=== PATIENT | female | born 1940 | race Caucasian/White ===

== ENCOUNTER → 2023-12-10 08:50 | Outpatient (BNVA) | payer MEDICARE, SELFPAY | PROVIDERS: PCP Family Medicine; Referring Provider Family Medicine; Visit Provider Psychiatry & Neurology Neurology | DX: G40.919 Epilepsy, unspecified, intractable, without status epilepticus (principal) | CPT/HCPCS: 99203 ==

== ENCOUNTER 2024-01-24 15:25 | Observation (INO) | payer MEDICARE, SELFPAY ==
[2024-01-24] VITALS (17 sets, daily range): BP systolic 102–152; BP diastolic 44–77; PULSE 61–94; RESP 13–30; TEMP 36.4–36.6; O2SAT 92–99; BMI 27.8; BMI 28.5
--- NOTE | 2024-01-24 15:45 | ECG_ITS ---
[facility] Test Date: 2024-01-24 Pat Name: Gia Aquino Department: Room: Gender: Female [employer]: : 1940 Requested By: Rhys Wade Order Number: [id number] Reading MD: JAN GREENWOOD Measurements Intervals [place] Rate: 81 P: 18 PA: 205 QRS: -13 QRSD: 110 T: 49 QT: 383 QTc: 447 Interpretive Statements SINUS RHYTHM LOW QRS VOLTAGE IN PRECORDIAL LEADS [QRS DEFLECTION < 1.0 mV IN CHEST LEADS] PATTERN CONSISTENT WITH PULMONARY DISEASE No previous ECG available for comparison Electronically Signed On 01-25-2024 00:07:36 CDT by JAN GREENWOOD [email or web address]
--- NOTE | 2024-01-24 16:08 | ED_ITS ---
HPI - Seizure 2 General: Chief Complaint: Seizure Stated Complaint: subclinical seizures (sent by Dr Grier) Time Seen by Provider: 01/24/24 15:55 Source: patient Mode of arrival: ambulatory History of Present Illness: HPI Narrative: This patient was referred to the emergency department by neurologist Dr. Grier. She has a longstanding history of a seizure disorder since young adulthood. Apparently has been controlled by phenobarbital up until a point in time when her phenobarbital was discontinued and she was started on Keppra as well as a second anticonvulsant. Subsequently her seizures been less well- controlled and today she was getting an EEG and was noted to have several seizures during that EEG with EEG consistent and supportive of a left-sided focus of her seizures. She was referred to the emergency department for loading of IV phenobarbital and admission for further care and control of her seizures. The patient denies any active complaints at this time. She confirms that she has had seizures since age 26. She also has a history of coronary disease and has had previous stents placed but denies any current cardiovascular symptoms palpitations near syncope etc. She states she has both partial as well as generalized seizures and that she sometimes is aware of her seizures coming on and many times not. MD complaint: seizure Associated symptoms: Deny chest pain, chills, fever(s) or syncope Related Data Home Medications Medication Instructions Recorded Confirmed levetiracetam 500 mg tablet mg PO 12/10/23 01/24/24 levothyroxine 25 mcg tablet mcg PO 12/10/23 01/24/24 zonisamide 100 mg capsule mg PO 12/10/23 01/24/24 Allergies Allergy/AdvReac Type Severity Reaction Status Date / Time codeine Allergy ADR/ALGY-Fl Verified 01/24/24 15:35 ushing Review of Systems 2 Const: Denies: fever(s) or chills Eyes: Denies: change in vision ENMT: Denies: throat pain, odynophagia, nasal discharge or nasal congestion Card: Denies: chest pain, palpitations, syncope or pre-syncope Resp: Denies: dyspnea, productive cough or non-productive cough GI: Denies: abdominal pain, nausea, vomiting or diarrhea : Denies: flank pain, difficulty voiding, dysuria or urinary frequency Musc: Denies: neck pain, back pain, extremity pain or extremity swelling Skin/Breast: Denies: rash, pruritus or erythema Neuro: Reports: seizure-like activity; Denies: headache(s), numbness in extremities or weakness in extremities Psych: Denies: anxiety, depression or mood swings PFSH ED 2 PFSH: Medical History (Updated 01/24/24 @ 17:36 by Roc Dejesus MD) CAD (coronary artery disease) Hypothyroidism Complex partial epilepsy with generalization Surgical History (Updated 01/24/24 @ 17:36 by Roc Dejesus MD) H/O heart artery stent Family History (Updated 01/24/24 @ 17:37 by Roc Dejesus MD) Other CAD (coronary artery disease) Social History (Updated 01/24/24 @ 17:38 by Roc Dejesus MD) Smoking and tobacco/nicotine status: never used tobacco/nicotine Alcohol intake: never Substance/Drug Use: never Household members: none Housing: House Marital status: / Physical Exam 2 Narrative: EXAM NARRATIVE: The patient is alert in no acute distress answers questions in a goal-directed fashion. Const: COMMON NORMALS: no acute distress, average body habitus, patient oriented x3 and healthy appearing GENERAL APPEARANCE: cooperative and comfortable HENMT: COMMON NORMALS: normocephalic, Normal nasal mucous membranes and turbinates present, moist oral mucous membranes and oropharynx normal HEAD & SCALP: normocephalic NOSE: Normal nasal mucous membranes and turbinates present Eye: COMMON NORMALS: Equal, round and reactive pupils present, EOMs intact bilaterally and conjunctivae normal CONJUNCTIVA: Yes conjunctivae normal P UPIL: Yes Equal, round and reactive pupils present Neck/C-Spine: COMMON NORMALS: full ROM, no lymphadenopathy and Thyroid normal THYROID: Thyroid normal Resp: COMMON NORMALS: normal respiratory effort, No retractions, No use of accessory muscles and clear to auscultation bilaterally EFFORT & INSPECTION: Yes able to speak in complete sentences AUSCULTATION: clear to auscultation bilaterally Cardio: COMMON NORMALS: regular rate, regular rhythm, No murmurs present (Cardio) and Peripheral pulses 2+ throughout RATE: regular rate RHYTHM: r egular rhythm PERIPHERAL PULSES: Peripheral pulses 2+ throughout GI: COMMON NORMALS: Normal to inspection, nondistended, normoactive bowel sounds present and Soft to palpation PALPATION: Yes Soft to palpation : COMMON NORMALS: Yes no CVA tenderness BLADDER/KIDNEY EXAM: Yes no CVA tenderness Back/Pelvis: COMMON NORMALS: no CVA tenderness, thoracic and lumbar spine normal to inspection, no thoracic nor lumbar tenderness and thoraco-lumbar ROM normal Extremity: COMMON NORMALS: normal to inspection, full ROM and capillary refill normal Neuro: COMMON NORMALS: patient oriented x3, moves all extremities, no focal motor deficits and no sensory deficits noted CRANIAL NERVES: Yes CN normal except as noted Psych: COMMON NORMALS: mental status grossly normal Skin: COMMON NORMALS: no rashes or lesions noted and turgor normal GENERAL SKIN EXAM: no rashes or lesions noted and turgor normal Course 2 Consultations: Consultation #1: Discussed with Dr. Longoria hospitalist and reaffirmed that he had discussion with Dr. Grier regarding the planned admission and continuation of phenobarbital and other antiepileptic medications to include for Keppra and zonisamide. Time: 16:36 Vital Signs: Vital signs: Vital Signs Temperature 97.9 F 01/24/24 15:25 Pulse Rate 86 01/24/24 17:32 Respiratory Rate 16 01/24/24 17:32 Blood Pressure 137/61 01/24/24 17:32 Pulse Oximetry 99 01/24/24 17:32 Oxygen Delivery Me thod Room Air 01/24/24 17:32 MDM - Seizure MDM Narrative Medical decision making narrative: This patient presents to the emergency department by referral as noted in the HPI. The patient has a longstanding history of seizure disorder has become less well-controlled due to medication changes that have occurred over the years. She was referred for loading of phenobarbital and believe plan for admission for continued monitoring while medication changes are being made. Clinical examination reveals her to be stable at this time without any focal findings. Extensive workup not engaged in the emergency department due to the nature of this presentation and planned admission. Initiated loading dose of phenobarbital 300 mg did obtain basic laboratories for baseline, EKG to ensure normal rhythm and as well as by request from hospitalist team CT imaging of the head. Lab Data 01/24/24 16:45 01/24/24 16:45 Labs: Radiology Impressions Head CT 01/24/24 16:39 IMPRESSION: 1. Atrophic or involutional change for age and bilateral mild chronic small-vessel disease change suggested. 2. No acute intracranial abnormality. Laboratory Results WBC 7.77 10^3/uL (3.29-11.43) 01/24/24 16:45 RBC 4.02 10^6/uL (3.85-5.65) 01/24/24 16:45 Hgb 13.20 g/dL (11.27-16.99) 01/24/24 16:45 Hct 40.3 % (36-47) 01/24/24 16:45 MCV 100.2 fl (85-98) H 01/24/24 16:45 MCH 32.8 pg (27-33) 01/24/24 16:45 MCHC 32.8 g/dL (30-55) 01/24/24 16:45 RDW 11.9 % (12.1-15.1) L 01/24/24 16:45 Plt Count 277 10^3/cmm (157-399) 01/24/24 16:45 MPV 10.3 fL (7.4-10.4) 01/24/24 16:45 Neut % (Auto) 80.6 % 01/24/24 16:45 Lymph % (Auto) 11.2 % 01/24/24 16:45 [place] % (Auto) 6.2 % 01/24/24 16:45 Eos % (Auto) 1.2 % 01/24/24 16:45 Baso % (Auto) 0.5 % 01/24/24 16:45 Neut # (Auto) 6.27 10^3/uL (1.8-7.7) 01/24/24 16:45 Lymph # (Auto) 0.9 10^3/uL (0.8-4.8) 01/24/24 16:45 [place] # (Auto) 0.5 10^3/uL (0.2-0.9) 01/24/24 16:45 Eos # (Auto) 0.1 10^3/uL (0.0-0.8) 01/24/24 16:45 Baso # (Auto) 0.0 10^3/uL (0.0-0.1) 01/24/24 16:45 Nucleated RBC % (auto) 0 % 01/24/24 16:45 Nucleated RBCs # 0.0 /100WBC 01/24/24 16:45 Sodium 137 mmol/L (136-145) 01/24/24 16:45 Potassium 3.8 mmol/L (3.5-5.1) 01/24/24 16:45 Chloride 102 mmol/L (98-107) 01/24/24 16:45 Carbon Dioxide 24 mmol/L (22-29) 01/24/24 16:45 Anion Gap 14.8 (5-19) 01/24/24 16:45 BUN 19 mg/dL (8-23) 01/24/24 16:45 Creatinine 0.6 mg/dL (0.5-0.9) 01/24/24 16:45 GFR Calculation Not Reportable 01/24/24 16:45 Glucose 115 mg/dL (65-115) 01/24/24 16:45 Calculated Osmolality 287 mOsm/kg (285-295) 01/24/24 16:45 Calcium 9.5 mg/dL (8.5-10.5) 01/24/24 16:45 Magnesium 2.2 mg/dL (1.7-2.3) 01/24/24 16:45 Total Bilirubin 0.3 mg/dL (0.15-1.2) 01/24/24 16:45 AST 17 U/L (0-32) 01/24/24 16:45 ALT 11 U/L (0-33) 01/24/24 16:45 Alkaline Phosphatase 122 U/L (35-105) H 01/24/24 16:45 Total Protein 7.1 g/dL (6.6-8.7) 01/24/24 16:45 Albumin 4.3 g/dL (3.5-5.2) 01/24/24 16:45 Globulin 2.8 g/dL (1.3-4.6) 01/24/24 16:45 Procalcitonin 0.04 ng/mL (0-0.5) 01/24/24 16:45 TSH 1.91 uIU/mL (0.27-4.20) 01/24/24 16:45 All radiology interpretation(s) finalized by discharge EKG Data EKG 1: Attestation: I personally reviewed and interpreted this EKG as follows: Interpretation: Resting EKG reveals a ventricular rate of 81 bpm. Normal TN interval, QRS duration, corrected QT interval. Normal axis. No acute ST-T wave changes noted. Discharge Plan Discharge Patient Disposition: Placed in Observation Admit Provider: Roc Dejesus Clinical Impression: Breakthrough seizure Coding Level of Care Code ED Records Management Technician for Jomar Lucia
--- NOTE | 2024-01-24 16:39 | CTR_ITS ---
PROCEDURE INFORMATION: Exam: CT Head Without Contrast Exam date and time: 01/24/2024 4:47 PM Age: 83 years old Clinical indication: Other: Seizure disorder; Additional info: Seizure disorder-breaththru seizures TECHNIQUE: Imaging protocol: Computed tomography of the head without contrast. Radiation optimization: All CT scans at this facility use at least one of these dose optimization techniques: automated exposure control; mA and/or kV adjustment per patient size (includes targeted exams where dose is matched to clinical indication); or iterative reconstruction. COMPARISON: No relevant prior studies available. RADIATION DOSE METRICS: Total DLP (mGy-cm): 969.11 FINDINGS: Brain: Atrophic or involutional change for age is seen. Mild chronic small-vessel disease change suggested bilaterally within the periventricular and subcortical deep white matter, including anterior basal ganglia bilaterally. No intracranial hemorrhage or hematoma is seen. No mass effect or shift of midline structures. No findings to indicate territorial or large vessel ischemic infarct. Cerebral ventricles: No significant ventriculomegaly. Paranasal sinuses: Visualized sinuses are unremarkable. No fluid levels. Mastoid air cells: Visualized mastoid air cells are well aerated. Bones: Bone windows of the skull show no fracture or acute osseous abnormality. Soft tissues: Unremarkable. CT/CT head wo con* [id number] IMPRESSION: 1. Atrophic or involutional change for age and bilateral mild chronic small-vessel disease change suggested. 2. No acute intracranial abnormality.
[2024-01-24 16:58] LABS: Basophils % 0.5 %; Eosinophils # 0.1 10^3/uL (0.0-0.8); Eosinophils % 1.2 %; Hematocrit 40.3 % (36-47); Lymphocytes # 0.9 10^3/uL (0.8-4.8); Lymphocytes % 11.2 %; Mean Corpuscular HGB Conc 32.8 g/dL (30-55); Mean Corpuscular Hemoglobin 32.8 pg (27-33); Mean Corpuscular Volume 100.2 fl (85-98); Mean Platelet Volume 10.3 fL (7.4-10.4); Monocytes # 0.5 10^3/uL (0.2-0.9); Monocytes % 6.2 %; Neutrophils # 6.27 10^3/uL (1.8-7.7); Neutrophils % 80.6 %; Nucleated Red Blood Cells % 0 %; Platelet Count 277 10^3/cmm (157-399); Red Blood Count 4.02 10^6/uL (3.85-5.65); Red Cell Distribution Width 11.9 % (12.1-15.1); White Blood Count 7.77 10^3/uL (3.29-11.43)
--- NOTE | 2024-01-24 17:17 | P.HP_ITS ---
Providers/Chief Complaint 2 Primary Care Provider: Dewayne Kramer NP Chief Complaint: subclinical seizures (sent by Dr Grier) History of Present Illness Gia Aquino is a 83 year old female with past medical history of complex partial seizure since the age of 26 with multiple breakthrough seizure 2-3 times for last few months almost on a weekly basis. As per the patient and daughter she was previously on zonogram and phenobarbital but was recently changed by her primary care provider and phenobarbital was discontinued and switched to Keppra which had made her breakthrough seizures worse. Today patient was at neurology office getting an EEG. As per the patient while waiting in the waiting because she did have a petit mall seizure. During the EEG she was found to have epileptic changes starting from the left focus hence she was transferred to the ER for loading of phenobarbital by Dr. Grier and direct admit was requested. Examination patient laying comfortably in bed, awake and alert. Denies any nausea, ting, headache, dizziness. Review of Systems 2 General: Reports: 10 or more systems reviewed and unremarkable except in HPI and below Const: Denies: fever(s), chills, body aches, change in appetite, change in weight, malaise, night sweats, diaphoresis, change in sleep pattern, daytime sleepiness or snoring Eyes: Denies: change in vision, blurry vision, photophobia, eye discomfort or eye discharge ENMT: Denies: throat pain, enlarged tonsils, hoarseness, mouth pain, oral sores, dry mouth, tinnitus, nasal congestion or post nasal drip Card: Denies: chest pain, palpitations, irregular heart rhythm, edema, swelling of feet/ankles, lightheadedness, syncope, pre-syncope, dyspnea on exertion, orthopnea, leg pain with exertion or acrocyanosis Resp: Denies: dyspnea, productive cough, non-productive cough, wheezing, stridor, pain on inspiration, change in phlegm color, hemoptysis or chest congestion GI: Denies: abdominal pain, nausea, vomiting, hematemesis, coffee ground emesis, dysphagia, heartburn, diarrhea, constipation, bloating, GI cramping, change in bowel habits, pain on defecation, hematochezia or melena : Denies: flank pain, dysuria, urinary frequency, urinary urgency, urinary hesitancy, nocturia or hematuria Musc: Denies: neck pain, back pain, extremity pain, joint pain, joint swelling, joint redness, joint stiffness or limited range of motion Neuro: Denies: headache(s), numbness in extremities, weakness in extremities, sensory changes, lack of coordination, difficulty walking, frequent falls, dizziness, vertigo, confusion, Slurred speech present, difficulty communicating thoughts or seizure-like activity Psych: Denies: anxiety, depression, mood swings, panic attacks, hopelessness or irritability Endo: Denies: polyuria, polydipsia, tired all the time, cold intolerance, excessive sweating, flushing or heat intolerance Scar/Lymph: Denies: easy bruising or easy bleeding All/Imm: Denies: tongue swelling, facial swelling or acute wheezing Medications/Allergies Home Medications Medication Instructions Recorded Confirmed Last Taken Type levetiracetam 500 mg tablet 750 mg (1.5 x 500 mg) PO BID 30 01/25/24 01/24/24 Unknown Rx days #90 tabs levothyroxine 25 mcg tablet 25 mcg PO QAM #10 tabs 01/25/24 01/24/24 Unknown Rx phenobarbital 100 mg tablet 100 mg PO QPM #30 tabs 01/25/24 Unknown Rx zonisamide 100 mg capsule 300 mg (3 x 100 mg) PO QPM 30 days 01/25/24 01/24/24 Unknown Rx #90 caps Allergies Allergy/AdvReac Type Severity Reaction Status Date / Time codeine Allergy ADR/ALGY-Fl Verified 01/24/24 15:35 ushing PFSH Acute 2 PFSH: Medical History (Updated 01/24/24 @ 17:36 by Roc Dejesus MD) CAD (coronary artery disease) Hypothyroidism Complex partial epilepsy with generalization Surgical History (Updated 01/24/24 @ 17:36 by Roc Dejesus MD) H/O heart artery stent Family History (Updated 01/24/24 @ 17:37 by Roc Dejesus MD) Other CAD (coronary artery disease) Social History (Updated 01/24/24 @ 17:38 by Roc Dejesus MD) Smoking and tobacco/nicotine status: never used tobacco/nicotine Alcohol intake: never Substance/Drug Use: never Household members: none Housing: House Marital status: / Vitals/I&O/Wt Last Vital Signs Temp 97.9 F 01/24/24 15:25 Pulse 82 01/24/24 15:25 Resp 16 01/24/24 15:25 BP 132/72 01/24/24 15:25 Pulse Ox 96 01/24/24 15:25 O2 Del Method Room Air 01/24/24 15:25 Weight last 48 hrs Weight 68.946 kg Physical Exam 2 Narrative: General: No acute distress, AO x3 HEENT: PERRLA, pupils bilaterally equal and reactive Chest: Normal vesicular breath sounds, no added sounds, equal good air entry bilaterally CVS: S1-S2 regular, no murmurs, no tachycardia, no gallops, no rubs Abdomen: Soft, nontender, no organomegaly, bowel sounds present Neuro: No focal deficits, no facial deformity, AO x3, power 5/5 in all limbs Data 01/25/24 03:52 01/25/24 03:52 A&P Assessment and plan (1) Complex partial epilepsy with generalization: (2) Breakthrough seizure: With breakthrough seizures 3-4 times every week. Seizures most likely complex partial with generalization. History of absent seizures. Seen on EEG today. Discussed in detail with Dr. Grier from neurology. Check CT head, urine drug screen, electrolytes, TSH, vitamin B12, folate level. Plan for loading with phenobarbital 300 mg stat followed by 100 mg at night. IV Keppra 750 mg twice daily Oral zonisamide 300 mg twice daily. Plan to check Keppra, phenobarbital and zonisamide levels in AM. Seizure precautions. If patient does have a seizure plan for IV Ativan 1 mg every 4 hours as needed. (3) Hypothyroidism: Check TSH. Continue home dose of levothyroxine. (4) CAD (coronary artery disease): Check A1c, lipid panel. No chest pain. Continue with home dose of baby aspirin. Plan Full code Patient's daughter Mei will be the DPOA Cardiac diet Protonix OPD prophylaxis Heparin 5000 Q12 hourly for DVT prophylaxis Attestations 2 Medical Necessity Statement*: Admitted in ICU under observation for management of breakthrough seizures in a patient with history of complex partial seizure with generalization. Diagnoses Complex partial epilepsy with generalization G40.209 Breakthrough seizure G40.919 Hypothyroidism E03.9 CAD (coronary artery disease) I25.10
[2024-01-24 17:20] LABS: Alanine Aminotransferase 11 U/L (0-33); Albumin Level 4.3 g/dL (3.5-5.2); Alkaline Phosphatase 122 U/L (35-105); Anion Gap 14.8 (5-19); Aspartate Amino Transferase 17 U/L (0-32); Blood Urea Nitrogen 19 mg/dL (8-23); Calcium 9.5 mg/dL (8.5-10.5); Carbon Dioxide 24 mmol/L (22-29); Chloride 102 mmol/L (98-107); Creatinine Clr Calc Pharmacy 50.1834; Globulin 2.8 g/dL (1.3-4.6); Glucose 115 mg/dL (65-115); Magnesium 2.2 mg/dL (1.7-2.3); Osmolality Calculated 287 mOsm/kg (285-295); Potassium 3.8 mmol/L (3.5-5.1); Sodium 137 mmol/L (136-145); Thyroid Stimulating Hormone 1.91 uIU/mL (0.27-4.20); Total Bilirubin 0.3 mg/dL (0.15-1.2); Total Protein 7.1 g/dL (6.6-8.7)
[2024-01-24 17:41] LABS: Procalcitonin 0.04 ng/mL (0-0.5)
--- NOTE | 2024-01-24 18:16 | PC.NURSE ---
Assumed care of patient from Cydney WELLINGTON, No documentation has been done on pt. Cherrie informed me that she has been discussing the Phenobarbitol order with pharmacy as she was not comfortable giving it IVP and Dr Wade ordered it as piggyback over an hr. Spoke with Adriana in pharmacy and she stated that IVP over 5-15mins is the way to give this med. Unable to pull from pyxis.
[2024-01-24 18:58] LABS: Iron 58 ug/dL (37-145); Percent Saturation 20.9 % (20-50); Total Iron Binding Capacity 277 mcg/dl; Unsaturated Iron Binding 219 ug/dL (112-347)
[2024-01-24] MEDS: levETIRAcetam 750 MG in sodium chloride 0.9% (100 ml) 100 ML 430 MG IV (19:06)
[2024-01-24] MEDS: PHENobarbital 130 mg/mL SDV 1 mL 300 MG IVP (19:06)
[2024-01-24] MEDS: zonisamide 100 MG Capsule 300 MG PO (19:06)
[2024-01-24 19:14] LABS: Vitamin B12 1424 pg/mL (232-1245)
[2024-01-24] MEDS: sodium chloride 0.9% 1,000 ML 50 ML IV (19:43)
[2024-01-24] MEDS: pantoprazole 40 mg SDV IVP (19:44)
[2024-01-24] MEDS: PHENobarbital 130 mg/mL SDV 1 mL 100 MG IVP (21:48)
[2024-01-24] MEDS: heparin 5,000 unit/mL INJ 1 mL 5000 UNIT SUBCUT (21:49)
[2024-01-25] VITALS (14 sets, daily range): BP systolic 108–147; BP diastolic 44–82; PULSE 51–84; RESP 12–20; TEMP 36.3; O2SAT 93–98
[2024-01-25 00:14] LABS: Bilirubin Urine Negative (Negative); Blood Urine Negative (Negative); Glucose Urine UA Negative (Normal); Ketones Urine Negative (Negative); Leukocyte Esterase Urine 1+ (Negative); Nitrate Urine Negative (Negative); Protein Urine Negative (Negative); Specific Gravity, Urine 1.016 (1.005-1.030); Urine Appearance Clear (CLEAR); Urine Color Yellow (Yellow); pH Urine 7.5 (5-7)
[2024-01-25 00:19] LABS: Add Urine Microscopic? YES; Bacteria Urine None Seen /hpf; Hyaline Casts Urine 0-4 /lpf; RBC Urine 0-2 /hpf (0-2); Squamous Epithelial Cell Urine 0-5 /hpf (0-5); WBC Urine 0-5 /hpf (0-5)
[2024-01-25 00:22] LABS: Amphetamines Screen Urine Negative (Negative); Barbiturates Screen Urine Positive (Negative); Benzodiazepines Screen Urine Negative (Negative); Cocaine Screen Urine Negative (Negative); Opiate Screen Urine Negative (Negative); PCP Screen Urine Negative (Negative); THC Screen Urine Negative (Negative)
[2024-01-25 04:27] LABS: Basophils % 0.7 %; Eosinophils # 0.2 10^3/uL (0.0-0.8); Eosinophils % 3.9 %; Hematocrit 36.1 % (36-47); Lymphocytes # 1.4 10^3/uL (0.8-4.8); Lymphocytes % 26.4 %; Mean Corpuscular HGB Conc 31.9 g/dL (30-55); Mean Corpuscular Hemoglobin 32.4 pg (27-33); Mean Corpuscular Volume 101.7 fl (85-98); Mean Platelet Volume 10.6 fL (7.4-10.4); Monocytes # 0.5 10^3/uL (0.2-0.9); Neutrophils # 3.19 10^3/uL (1.8-7.7); Neutrophils % 58.8 %; Nucleated Red Blood Cells % 0 %; Platelet Count 247 10^3/cmm (157-399); Red Blood Count 3.55 10^6/uL (3.85-5.65); Red Cell Distribution Width 11.9 % (12.1-15.1); White Blood Count 5.42 10^3/uL (3.29-11.43)
[2024-01-25 04:45] LABS: Alanine Aminotransferase 9 U/L (0-33); Albumin Level 3.7 g/dL (3.5-5.2); Alkaline Phosphatase 97 U/L (35-105); Anion Gap 11.6 (5-19); Aspartate Amino Transferase 14 U/L (0-32); Blood Urea Nitrogen 16 mg/dL (8-23); Calcium 8.7 mg/dL (8.5-10.5); Carbon Dioxide 23 mmol/L (22-29); Chloride 108 mmol/L (98-107); Creatinine Clr Calc Pharmacy 50.8469; Estmated Average Glucose 108; Globulin 2.1 g/dL (1.3-4.6); Glucose 92 mg/dL (65-115); Hemoglobin A1C 5.4 % (4.0-6.0); Magnesium 2.2 mg/dL (1.7-2.3); Osmolality Calculated 289 mOsm/kg (285-295); Phosphorus 3.3 mg/dL (2.5-4.5); Potassium 3.6 mmol/L (3.5-5.1); Sodium 139 mmol/L (136-145); Total Bilirubin 0.4 mg/dL (0.15-1.2); Total Protein 5.8 g/dL (6.6-8.7)
[2024-01-25 04:48] LABS: Chol HDL Ratio 3.37 mg/dL (0.0-4.40); Cholesterol 209 mg/dL (0-200); HDL Cholesterol 62 mg/dL (60-100); LDL Cholesterol Calculated 136 mg/dL (50-129); LDL HDL Ratio 2.19 RATIO (0.00-3.22); Triglycerides 55 mg/dL (0-150)
[2024-01-25 05:20] LABS: Folate Level > 20.0 ng/mL (4.8-37.3)
[2024-01-25] MEDS: levothyroxine 25 mcg Tablet PO (05:39)
[2024-01-25] MEDS: levETIRAcetam 750 MG in sodium chloride 0.9% (100 ml) 100 ML 430 MG IV (08:43)
[2024-01-25] MEDS: aspirin 81 mg EC Tablet PO (08:44)
[2024-01-25] MEDS: heparin 5,000 unit/mL INJ 1 mL 5000 UNIT SUBCUT (08:44)
[2024-01-25] MEDS: PHENobarbital 130 mg/mL SDV 1 mL 100 MG IVP (08:44)
[2024-01-25] MEDS: zonisamide 100 MG Capsule 300 MG PO (08:46)
--- NOTE | 2024-01-25 10:08 | PM.DCS ---
Discharge Providers Date of Admission: 01/24/24 17:21 Date of Discharge: January 25, 2024 Attending Provider at Admission: Roc Dejesus MD Attending Provider at Discharge: Roc Dejesus MD Primary Care Provider: Dewayne Kramer NP Diagnoses at Discharge Discharge Diagnosis (1) Complex partial epilepsy with generalization: Status: Acute (2) Breakthrough seizure: Status: Acute (3) Hypothyroidism: Status: Acute (4) CAD (coronary artery disease): Status: Acute Reason for Visit Reason for Visit: subclinical seizures (sent by Dr Grier) Hospital Course Hospital Course Gia Aquino is a 83 year old female with past medical history of complex partial seizure since the age of 26 with multiple breakthrough seizure 2-3 times for last few months almost on a weekly basis. As per the patient and daughter she was previously on zonogram and phenobarbital but was recently changed by her primary care provider and phenobarbital was discontinued and switched to Keppra which had made her breakthrough seizures worse. Today patient was at neurology office getting an EEG. As per the patient while waiting in the waiting because she did have a [place] seizure. During the EEG she was found to have epileptic changes starting from the left focus hence she was transferred to the ER for loading of phenobarbital by Dr. Grier and direct admit was requested. Patient was admitted to the ICU for further monitoring and changing of her antiseizure medications. During hospitalization she did not have any further episodes of seizures and tolerated the adjustment of medications well. She has been discharged hemodynamic stable condition after confirming with neurologist on her home dose of Keppra, zonisamide but starting phenobarb 100 mg oral every evening with advised to follow-up with neurology team as an outpatient within next 1 week. Physical Exam Narrative: General: No acute distress, AO x3 HEENT: PERRLA, pupils bilaterally equal and reactive Chest: Normal vesicular breath sounds, no added sounds, equal good air entry bilaterally CVS: S1-S2 regular, no murmurs, no tachycardia, no gallops, no rubs Abdomen: Soft, nontender, no organomegaly, bowel sounds present Neuro: No focal deficits, no facial deformity, AO x3, power 5/5 in all limbs Discharge Data Studies Completed and Pending Completed Studies During Hospitalization Category Date Time Status CT head wo con* [id number] Stat Cat Scan 01/24/24 16:39 Completed Pending at discharge Category Date Time Status KEPPRA [Levetiracetam Immunoassy] Routine Lab 01/25/24 03:52 Received Zonisamide (Zonegran) Routine Lab 01/25/24 03:52 Received Radiology Impressions Head CT 01/24/24 16:39 IMPRESSION: 1. Atrophic or involutional change for age and bilateral mild chronic small-vessel disease change suggested. 2. No acute intracranial abnormality. Laboratory Results WBC 5.42 10^3/uL (3.29-11.43) 01/25/24 03:52 RBC 3.55 10^6/uL (3.85-5.65) L 01/25/24 03:52 Hgb 11.50 g/dL (11.27-16.99) 01/25/24 03:52 Hct 36.1 % (36-47) 01/25/24 03:52 MCV 101.7 fl (85-98) H 01/25/24 03:52 MCH 32.4 pg (27-33) 01/25/24 03:52 MCHC 31.9 g/dL (30-55) 01/25/24 03:52 RDW 11.9 % (12.1-15.1) L 01/25/24 03:52 Plt Count 247 10^3/cmm (157-399) 01/25/24 03:52 MPV 10.6 fL (7.4-10.4) H 01/25/24 03:52 Neut % (Auto) 58.8 % 01/25/24 03:52 Lymph % (Auto) 26.4 % 01/25/24 03:52 [place] % (Auto) 10.0 % 01/25/24 03:52 Eos % (Auto) 3.9 % 01/25/24 03:52 Baso % (Auto) 0.7 % 01/25/24 03:52 Neut # (Auto) 3.19 10^3/uL (1.8-7.7) 01/25/24 03:52 Lymph # (Auto) 1.4 10^3/uL (0.8-4.8) 01/25/24 03:52 [place] # (Auto) 0.5 10^3/uL (0.2-0.9) 01/25/24 03:52 Eos # (Auto) 0.2 10^3/uL (0.0-0.8) 01/25/24 03:52 Baso # (Auto) 0.0 10^3/uL (0.0-0.1) 01/25/24 03:52 Nucleated RBC % (auto) 0 % 01/25/24 03:52 Nucleated RBCs # 0.0 /100WBC 01/25/24 03:52 Sodium 139 mmol/L (136-145) 01/25/24 03:52 Potassium 3.6 mmol/L (3.5-5.1) 01/25/24 03:52 Chloride 108 mmol/L (98-107) H 01/25/24 03:52 Carbon Dioxide 23 mmol/L (22-29) 01/25/24 03:52 Anion Gap 11.6 (5-19) 01/25/24 03:52 BUN 16 mg/dL (8-23) 01/25/24 03:52 Creatinine 0.5 mg/dL (0.5-0.9) 01/25/24 03:52 GFR Calculation Not Reportable 01/25/24 03:52 Glucose 92 mg/dL (65-115) 01/25/24 03:52 Estimat Average Glucose 108 01/25/24 03:52 Hemoglobin A1c 5.4 % (4.0-6.0) 01/25/24 03:52 Calculated Osmolality 289 mOsm/kg (285-295) 01/25/24 03:52 Calcium 8.7 mg/dL (8.5-10.5) 01/25/24 03:52 Phosphorus 3.3 mg/dL (2.5-4.5) 01/25/24 03:52 Magnesium 2.2 mg/dL (1.7-2.3) 01/25/24 03:52 Iron 58 ug/dL (37-145) 01/24/24 16:45 TIBC 277 mcg/dl 01/24/24 16:45 % Saturation 20.9 % (20-50) 01/24/24 16:45 Unsat Iron Binding 219 ug/dL (112-347) 01/24/24 16:45 Total Bilirubin 0.4 mg/dL (0.15-1.2) 01/25/24 03:52 AST 14 U/L (0-32) 01/25/24 03:52 ALT 9 U/L (0-33) 01/25/24 03:52 Alkaline Phosphatase 97 U/L (35-105) 01/25/24 03:52 Total Protein 5.8 g/dL (6.6-8.7) L 01/25/24 03:52 Albumin 3.7 g/dL (3.5-5.2) 01/25/24 03:52 Globulin 2.1 g/dL (1.3-4.6) 01/25/24 03:52 Triglycerides 55 mg/dL (0-150) 01/25/24 03:52 Cholesterol 209 mg/dL (0-200) H 01/25/24 03:52 LDL Cholesterol, Calc 136 mg/dL (50-129) H 01/25/24 03:52 HDL Cholesterol 62 mg/dL (60-100) 01/25/24 03:52 LDL/HDL Ratio 2.19 RATIO (0.00-3.22) 01/25/24 03:52 Cholesterol/HDL Ratio 3.37 mg/dL (0.0-4.40) 01/25/24 03:52 Vitamin B12 1424 pg/mL (232-1245) H 01/24/24 16:45 Folate > 20.0 ng/mL (4.8-37.3) 01/25/24 03:52 Procalcitonin 0.04 ng/mL (0-0.5) 01/24/24 16:45 TSH 1.91 uIU/mL (0.27-4.20) 01/24/24 16:45 Urine Color Yellow (Yellow) 01/24/24 22:30 Urine Appearance Clear (CLEAR) 01/24/24 22:30 Urine pH 7.5 (5-7) 01/24/24 22:30 Ur Specific [place] 1.016 (1.005-1.030) 01/24/24 22:30 Urine Protein Negative (Negative) 01/24/24 22:30 Urine Glucose (UA) Negative (Normal) 01/24/24 22:30 Urine Ketones Negative (Negative) 01/24/24 22:30 Urine Blood Negative (Negative) 01/24/24 22:30 Urine Nitrate Negative (Negative) 01/24/24 22:30 Urine Bilirubin Negative (Negative) 01/24/24 22:30 Urine Urobilinogen 1.0 mg/dL (Negative) 01/24/24 22:30 Ur Leukocyte Esterase 1+ (Negative) A 01/24/24 22:30 Urine RBC 0-2 /hpf (0-2) 01/24/24 22:30 Urine WBC 0-5 /hpf (0-5) 01/24/24 22:30 Ur Squamous Epith Cells 0-5 /hpf (0-5) 01/24/24 22:30 Amorphous Sediment Not Reportable 01/24/24 22:30 Urine Bacteria None seen /hpf (NONE) 01/24/24 22:30 Hyaline Casts 0-4 /lpf H 01/24/24 22:30 Urine Opiates Screen Negative ng/mL (Negative) 01/24/24 22:30 Ur Barbiturates Screen Positive ng/mL (Negative) H 01/24/24 22:30 Ur Phencyclidine Scrn Negative ng/mL (Negative) 01/24/24 22:30 Ur Amphetamines Screen Negative ng/mL (Negative) 01/24/24 22:30 Phenobarbital 8.1 ug/mL (10-30) L 01/25/24 03:52 U Benzodiazepines Scrn Negative ng/mL (Negative) 01/24/24 22:30 Urine Cocaine Screen Negative ng/mL (Negative) 01/24/24 22:30 U Marijuana (THC) Screen Negative ng/mL (Negative) 01/24/24 22:30 Vitals Last Vital Signs Temp 97.3 F L 01/25/24 02:59 Pulse 67 01/25/24 09:16 Resp 15 01/25/24 09:16 BP 134/62 01/25/24 09:16 Pulse Ox 97 01/25/24 09:00 O2 Del Method Room Air 01/24/24 23:49 Discharge Plan Discharge Patient Disposition: Home Condition: Stable Prescriptions: New phenobarbital 100 mg tablet 100 mg PO QPM Qty: 30 0RF Changed levetiracetam 500 mg tablet 750 mg PO BID 30 Days Qty: 90 0RF levothyroxine 25 mcg tablet 25 mcg PO QAM Qty: 10 0RF zonisamide 100 mg capsule 300 mg PO QPM 30 Days Qty: 90 0RF Discharge Orders: Discharge Order (Routine); Ordered 01/25/24 Ordered By: Roc Anjelica Referrals: Dorian Grier MD [Physician] - 4-7 days Dewayne Kramer NP [Primary Care Provider] - Discharge Diet: Cardiac Patient Instructions: Opioid Safety Activity Restrictions/Additional Instructions: Continue taking all your medications as before. Take Keppra 750 mg twice daily as before, zonisamide 300 mg nightly as before. Phenobarbital 100 mg nightly has been added to your medication list. Please call Saturday to schedule follow-up appointments with both Neurology and your primary care provider, both numbers are provided. Discharge Attestations Time Spent in Discharge Care*: greater than 30 min Specific Discharge Activities: educating patient, discussing with pcp/other providers, discussing with director case management/social workers/dc planners, documenting/other paperwork and evaluating patient/reviewing data Status at Discharge: Cognitive status at discharge: cognitively intact, Behavioral status at discharge: cooperative, Functional status at discharge: independent ambulation, Overall status at discharge: patient is back to baseline Quality Metrics Clinical Quality Measures [ No reported AMI, CVA or VTE this stay] Coding Level of Care Code 60047 Total time (in minutes) for Discharge: 60 Diagnoses Complex partial epilepsy with generalization G40.209 Breakthrough seizure G40.919 Hypothyroidism E03.9 CAD (coronary artery disease) I25.10
--- NOTE | 2024-01-25 13:41 | PC.NURSE ---
All D/C instructions educated to patient and daughter no concerns expressed, IV dc, patient transported home by daughter
[2024-01-27 15:59] LABS: Levetiracetam Immunoassy 23.6 mcg/mL (6.0-46.0)
[2024-01-30 14:28] LABS: Zonisamide (Zonegran) 23.4 mcg/mL (10.0-40.0)
== END 2024-01-25 13:41 | disposition home or self-care (01) ==
LOC: ER 16:54 → ICU 17:21
PROVIDERS: Admitting Provider Student in an Organized Health Care Education/Training Program; Emergency Provider Emergency Medicine; PCP Nurse Practitioner; Visit Provider Student in an Organized Health Care Education/Training Program
DX: G40.919 Epilepsy, unspecified, intractable, without status epilepticus (principal); G40.209 Localization-related (focal) (partial) symptomatic epilepsy and epileptic syndromes with complex partial seizures, not intractable, without status epilepticus; E03.9 Hypothyroidism, unspecified; I25.10 Atherosclerotic heart disease of native coronary artery without angina pectoris; Z95.5 Presence of coronary angioplasty implant and graft; Z82.49 Family history of ischemic heart disease and other diseases of the circulatory system
CPT/HCPCS: 36415; 70450; 80053; 80061; 80177; 80184; 80203; 80306; 81001; 82607; 82746; 83036; 83540; 83550; 83735; 84100; 84145; 84443; 85025; 93005; 94664; 95816; 95819; 96365; 96372; 96375; 96376; 99285; G0378; J1644; J1953; J2470; J2560; J7030

== ENCOUNTER → 2024-02-04 07:36 | Outpatient (BNVA) | payer MEDICARE, SELFPAY | PROVIDERS: PCP Nurse Practitioner; Visit Provider Psychiatry & Neurology Neurology | DX: G40.919 Epilepsy, unspecified, intractable, without status epilepticus (principal); G40.209 Localization-related (focal) (partial) symptomatic epilepsy and epileptic syndromes with complex partial seizures, not intractable, without status epilepticus | CPT/HCPCS: 99212 ==

== ENCOUNTER → 2024-06-02 14:24 | Outpatient (BNVA) | payer MEDICARE, SELFPAY | PROVIDERS: PCP Nurse Practitioner; Referring Provider Psychiatry & Neurology Neurology; Visit Provider Psychiatry & Neurology Neurology | DX: G40.209 Localization-related (focal) (partial) symptomatic epilepsy and epileptic syndromes with complex partial seizures, not intractable, without status epilepticus (principal); G40.919 Epilepsy, unspecified, intractable, without status epilepticus | CPT/HCPCS: 95816 ==

== ENCOUNTER → 2024-09-09 13:23 | Outpatient (BNVA) | payer MEDICARE, SELFPAY | PROVIDERS: PCP Nurse Practitioner; Visit Provider Psychiatry & Neurology Neurology | DX: G40.919 Epilepsy, unspecified, intractable, without status epilepticus (principal); G40.209 Localization-related (focal) (partial) symptomatic epilepsy and epileptic syndromes with complex partial seizures, not intractable, without status epilepticus | CPT/HCPCS: 36415; 80184; 99212 ==